=== PATIENT | female | born 1945 ===

== ENCOUNTER 2024-07-31 18:40 | Outpatient (REF) | payer MEDICARE, SELFPAY | END 2024-07-31 18:41 | disposition home or self-care (01) | LOC: NCHCN 18:40 | PROVIDERS: Visit Provider Family Medicine | DX: N39.0 Urinary tract infection, site not specified (principal) | CPT/HCPCS: 87086 ==

== ENCOUNTER 2024-12-19 14:09 | Outpatient (REF) | payer MEDICARE, SELFPAY | END 2024-12-19 14:10 | disposition home or self-care (01) | LOC: NCHCN 14:09 | PROVIDERS: Visit Provider Family Medicine | DX: N39.0 Urinary tract infection, site not specified (principal); B96.29 Other Escherichia coli [E. coli] as the cause of diseases classified elsewhere | CPT/HCPCS: 87077; 87086; 87186 ==